=== PATIENT | female | born 1975 | race Caucasian/White ===

== ENCOUNTER 2020-05-12 04:48 | Day surgery (SDC) | payer BC ==
[2020-05-11 11:01] VITALS: BMI 37.2
[~2020-05-12 04:48] MED LIST: FERRIC SUBSULFATE 500 ML BOTTLE TP ONE; IODINE/POTASSIUM IODIDE 5%/10% 14 ML BOTTLE NR ONE
[2020-05-12] MEDS ORDERED: PROPOFOL 20 ML ONE ×3 (13:23→14:11)
[2020-05-12] MEDS ORDERED: MIDAZOLAM HCL 2 MG/2 ML SINGLE DOSE VIAL ONE (13:23)
[2020-05-12] MEDS ORDERED: ceFAZolin SODIUM 1 GM VIAL IVPB ONE (13:38)
[2020-05-12] MEDS ORDERED: SUCCINYLCHOLINE CHLORIDE 200 MG/10 ML SYRINGE ONE (13:40)
[2020-05-12] MEDS ORDERED: DESFLURANE GAS 240 ML BOTTLE IH ONE (14:32)
[2020-05-12] MEDS ORDERED: FERRIC SUBSULFATE 500 ML BOTTLE TP ONE (14:36)
[2020-05-12] MEDS ORDERED: oxyCODONE HCL 5 MG TABLET PO PRN (15:10)
[2020-05-12] MEDS ORDERED: ONDANSETRON 4 MG/2 ML VIAL IVPUSH PRN (15:10)
[2020-05-12] MEDS ORDERED: LACTATED RINGERS SOLUTION 1,000 ML IV SCH (15:15)
[2020-05-12] MEDS ORDERED: ONDANSETRON 4 MG/2 ML VIAL IVPUSH ONE (16:53)
[2020-05-12] MEDS ORDERED: ONDANSETRON 4 MG/2 ML VIAL ONE (16:58)
[2020-05-12 18:27] VITALS: BP 118/67; PULSE 68; TEMP 96.6
--- NOTE | 2020-05-13 09:38 | OP ---
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 SURGEON: Mary Ellen Alves MD PROCEDURE: Loop electrosurgical excision procedure. DESCRIPTION OF PROCEDURE: After patient was prepped and draped and under general anesthesia, a LEEP procedure was with a currency of 30 cone biopsy was removed, and meanwhile endocervical curetting was done also. So, there was endocervical curetting and LEEP biopsy. ESTIMATED BLOOD LOSS: 10 mL. DISPOSITION: Patient tolerated the procedure and went to recovery room in good condition. Mago [id number]
--- NOTE | 2020-05-14 19:09 | PATH ---
Surgical Pathology Report Patient Name: DAMIÁN ELI [facility]. Rec. #: [id number] /Age/Gender: 1975 (Age: 45) / F Account: [id number] Location: [facility] SURGICAL Taken: 05/12/2020 Received: 05/13/2020 Reported: 05/14/2020 Physicians: Mary Ellen Alves M.D. Specimen(s) Received A: ENDOCERVICAL CURETTINGS B: CERVIX, LEEP CONE Clinical History High grade cervical lesion Final Diagnosis A. ENDOCERVICAL CURETTINGS, DILATION AND CURETTAGE: DENUDED CERVICAL MUCOSA AND SCANT BENIGN ENDOCERVICAL GLANDS ADMIXED WITH MUCUS. NO HIGH GRADE DYSPLASIA IDENTIFIED. B. CERVIX, LOOP ELECTROSURGICAL EXCISION PROCEDURE (LEEP)/CONE BIOPSY: CERVICAL SQUAMOUS AND ENDOCERVICAL MUCOSA WITH HIGH GRADE SQUAMOUS INTRAEPITHELIAL LESION (CERVICAL INTRAEPITHELIAL NEOPLASIA 3/ CONCHITA 3) WITH FOCAL GLANDULAR INVOLVEMENT. FOCAL AREAS OF LOW GRADE SQUAMOUS INTRAEPITHELIAL LESION PRESENT. SURGICAL RESECTION MARGINS: CANNOT BE ASSESSED. TRANSFORMATION ZONE: PRESENT. SEE COMMENT. Comment: Margins cannot be accurately assessed due to the marked fragmentation of tissue and presence of detached fragments. Suggest clinical correlation. Case seen in intradepartmental review with consensus on diagnosis. Electronically Signed Amrita Velez M.D. Addendum Reported: 05/20/2020 Addendum Diagnosis Case discussed with Dr. Alves, 05/20/20. Amrita Velez M.D. Gross Description A. Received in formalin labeled "endocervical curettings," is a 1.2 x 0.8 x 0.2 cm aggregate of rice-espinal soft tissue fragments admixed with blood-tinged mucous. The formalin is altered and the specimen is entirely submitted in one cassette. B. Received in formalin labeled "cervix, LEEP cone biopsy," are 4 rice saab and brown, irregular, unoriented portions of tissue ranging from 0.8 x 0.3 x 0.3 cm to 2.0 x 1.2 x 0.7 cm. The specimens are inked blue and serially sectioned. The specimen is entirely submitted in 5 cassettes. DL/05/13/2020 saudi/05/13/2020
== END 2020-05-12 18:20 | disposition home or self-care (01) ==
LOC: JASU-SURG 04:48
PROVIDERS: ATTEND Obstetrics & Gynecology
PROC: 0UBC7ZX Excision of Cervix, Via Natural or Artificial Opening, Diagnostic (ICD-10-PCS; principal; 2020-05-12 13:00)
DX: D06.0 Carcinoma in situ of endocervix (principal)
CPT/HCPCS: 36415; 84703; 86850; 86900; 86901; 86922; 88305-TC; 88307-TC; 94760